=== PATIENT | male | born 1985 | race Caucasian/White ===

== ENCOUNTER 2017-10-23 07:12 | Emergency (ER) | payer OTHER ==
[2017-10-23 07:31] VITALS: BP 127/90
[2017-10-23] MEDS ORDERED: Sodium Chloride 0.9% 10 ML Syringe FLUSH PRN (07:49)
[2017-10-23] MEDS ORDERED: Sodium Chloride 0.9% 1,000 ML IV SCH (08:00)
[2017-10-23] MEDS ORDERED: Ondansetron 4 MG/2 ML SDV IVPUSH ONE (08:08)
--- NOTE | 2017-10-23 09:12 | EDM.PDOC ---
ED HPI GENERAL MEDICAL PROBLEM - General Chief Complaint: Syncope Stated Complaint: SYNCOPE Time Seen by Provider: 10/23/17 07:30 Source of Information: Reports: Patient, Family History Limitations: Reports: No Limitations - History of Present Illness INITIAL COMMENTS - FREE TEXT/NARRATIVE: The patient went to bed feeling fine. At 3am he woke up and vomited once. He went back to bed and did not sleep well. He got up this morning to get ready and he passed out. His said he was out for about 2 minutes. He did not hit his head. He has a mild headache. He has no chest pain, shortness of breath, fever, chills, cough, or abdominal pain. He has no nausea now. He has no numbness or weakness. He has no health problems. Onset: Gradual Duration: Hour(s): (3am) Location: Reports: Head Quality: Reports: Ache Severity: Mild Improves with: Reports: None Worsens with: Reports: None Associated Symptoms: Reports: Nausea/Vomiting. Denies: Confusion, Chest Pain, Cough, Fever/Chills, Headaches, Shortness of Breath Headache Pain Score (Numeric/FACES): 3 - Related Data Allergies Allergy/AdvReac Type Severity Reaction Status Date / Time cefaclor [From [facility]] Allergy Hives Verified 10/23/17 07:31 Home Meds: Home Meds Ondansetron [Zofran ODT] 4 mg PO Q6H PRN #20 tab.dis 10/23/17 [Rx] Past Medical History - Past Health History Medical/Surgical History: Denies Medical/Surgical History - Past Surgical History HEENT Surgical History: Reports: Oral Surgery Social & Family History - Tobacco Use Smoking Status *Q: Never Smoker Second Hand Smoke Exposure: No - Caffeine Use Caffeine Use: Reports: None - Alcohol Use Days Per Week of Alcohol Use: 0 - Recreational Drug Use Recreational Drug Use: No - Living Situation & Occupation Living situation: Reports: , with Family Occupation: Employed ED ROS GENERAL - Review of Systems Review Of Systems: See Below Constitutional: Reports: No Symptoms HEENT: Reports: No Symptoms Respiratory: Reports: No Symptoms Cardiovascular: Reports: Syncope Endocrine: Reports: No Symptoms GI/Abdominal: Reports: Nausea, Vomiting. Denies: Abdominal Pain, Diarrhea : Reports: No Symptoms Musculoskeletal: Reports: No Symptoms Skin: Reports: No Symptoms Neurological: Reports: Headache. Denies: Confusion, Dizziness, Numbness, Weakness ED EXAM, GENERAL - Physical Exam Exam: See Below Exam Limited By: No Limitations General Appearance: Alert, No Apparent Distress Ears: Normal External Exam Nose: Normal Inspection Head: Atraumatic, Normocephalic Neck: Normal Inspection Respiratory/Chest: No Respiratory Distress, Lungs Clear, Normal Breath Sounds Cardiovascular: Regular Rate, Rhythm, No Edema, No Murmur GI/Abdominal: Soft, Non-Tender, No Organomegaly, No Mass Back Exam: Normal Inspection Extremities: Normal Inspection Neurological: Alert, Oriented, No Motor/Sensory Deficits Skin Exam: Warm, Dry EKG INTERPRETATION EKG Date: 10/23/17 Time: 08:09 Rhythm: NSR Rate (Beats/Min): 63 [place]: Normal P-Wave: Present QRS: Normal ST-T: Elevated (normal early repol) QT: Normal Course - Vital Signs Last Recorded V/S: Last Vital Signs Temp 97.8 F 10/23/17 07:25 Pulse 68 10/23/17 07:25 Resp 16 10/23/17 07:25 BP 127/90 10/23/17 07:25 Pulse Ox 100 10/23/17 07:25 Orthostatic Blood Pressure [ 127/104 Standing] Orthostatic Blood Pressure [ 133/82 Sitting] Orthostatic Blood Pressure [ 127/90 Supine] - Orders/Labs/Meds Orders: Active Orders 24 hr Category Date Time Status Cardiac Monitoring [RC] . DIRECTED Care 10/23/17 07:49 Active EKG Documentation Completion [RC] STAT Care 10/23/17 07:49 Active Peripheral IV Care [RC] . DIRECTED Care 10/23/17 07:49 Active Sodium Chloride 0.9% [Normal Saline] 1,000 ml Med 10/23/17 08:00 Active IV .BOLUS Sodium Chloride 0.9% [Saline Flush] Med 10/23/17 07:49 Active 10 ml FLUSH ASDIRECTED PRN Peripheral IV Insertion Adult [OM.PC] Stat Oth 10/23/17 07:49 Ordered Medication Orders Sodium Chloride (Normal Saline) 1,000 mls @ 1,000 mls/hr IV .BOLUS KENDRA Last Admin: 10/23/17 08:10 Dose: 1,000 mls/hr Sodium Chloride (Saline Flush) 10 ml FLUSH ASDIRECTED PRN PRN Reason: Keep Vein Open Last Admin: 10/23/17 08:10 Dose: 10 ml Labs: Laboratory Tests 10/23/17 10/23/17 10/23/17 Range/Units 08:00 08:00 08:00 WBC 6.60 (4.23-9.07) K/mm3 RBC 5.28 (4.63-6.08) M/mm3 Hgb 15.2 (13.7-17.5) gm/L Hct 44.6 (40.1-51.0) % MCV 84.5 (79.0-92.2) fl MCH 28.8 (25.7-32.2) pg MCHC 34.1 (32.2-35.5) g/dl RDW Std Deviation 40.8 (35.1-43.9) fL Plt Count 331 (163-337) K/mm3 MPV 8.7 L (9.4-12.3) fl Neut % (Auto) 46.2 (34.0-67.9) % Lymph % (Auto) 39.4 (21.8-53.1) % [place] % (Auto) 12.6 H (5.3-12.2) % Eos % (Auto) 1.1 (0.8-7.0) Baso % (Auto) 0.5 (0.1-1.2) % Neut # (Auto) 3.06 (1.78-5.38) K/mm3 Lymph # (Auto) 2.60 (1.32-3.57) K/mm3 [place] # (Auto) 0.83 H (0.30-0.82) K/mm3 Eos # (Auto) 0.07 (0.04-0.54) K/mm3 Baso # (Auto) 0.03 (0.01-0.08) K/mm3 D-Dimer, Quantitative < 0.19 L (0.19-0.59) mg/L Sodium 140 (136-145) mEq/L Potassium 4.5 (3.5-5.1) mEq/L Chloride 105 (98-107) mEq/L Carbon Dioxide 24 (21-32) mEq/L Anion Gap 15.5 H (5-15) BUN 21 H (7-18) mg/dL Creatinine 1.2 (0.7-1.3) mg/dL Est Cr Clr Drug Dosing 87.56 mL/min Estimated GFR (MDRD) > 60 (>60) mL/min BUN/Creatinine Ratio 17.5 (14-18) Glucose 109 H (74-106) mg/dL Calcium 9.3 (8.5-10.1) mg/dL Total Bilirubin 0.6 (0.2-1.0) mg/dL AST 25 (15-37) U/L ALT 27 (16-63) U/L Alkaline Phosphatase 73 (46-116) U/L Troponin I < 0.017 (0.00-0.056) ng/mL Total Protein 7.6 (6.4-8.2) g/dl Albumin 3.8 (3.4-5.0) g/dl Globulin 3.8 gm/dL Albumin/Globulin Ratio 1.0 (1-2) Meds: Medications Generic Name Dose Route Start Last Admin Trade Name Freq PRN Reason Stop Dose Admin Sodium Chloride 1,000 mls @ 1,000 mls/hr 10/23/17 08:00 10/23/17 08:10 Normal Saline IV 1,000 mls/hr .BOLUS KENDRA Administration Sodium Chloride 10 ml 10/23/17 07:49 10/23/17 08:10 Saline Flush FLUSH 10 ml ASDIRECTED PRN Administration Keep Vein Open Discontinued Medications Generic Name Dose Route Start Last Admin Trade Name Freq PRN Reason Stop Dose Admin Ondansetron HCl 4 mg 10/23/17 08:08 10/23/17 08:12 Zofran IVPUSH 10/23/17 08:09 4 mg ONETIME ONE Administration - Re-Assessments/Exams Free Text/Narrative Re-Assessment/Exam: 10/23/17 09:14 I ordered an IV NS 1L bolus, EKG, labs. His EKG shows a NSR with no acute changes. He had more nausea and vomited once. I ordered some zofran 4mg IV. He denied nausea here in the ER earlier. His CBC and CMP look good. His troponin and D-dimer was negative. He feels better. 10/23/17 09:31 I will discharge him home with some zofran. Departure - Departure Time of Disposition: 09:35 Disposition: Home, Self-Care 01 Condition: Good Clinical Impression: Gastroenteritis Prescriptions: Ondansetron [Zofran ODT] 4 mg PO Q6H PRN #20 tab.dis PRN Reason: Nausea/Vomiting Referrals: German Abad Jr, MD [Primary Care Provider] - 1 Week Forms: ED Department Discharge Additional Instructions: Take zofran every 6 hours as needed for nausea and vomiting. Drink plenty of fluids today. Get some rest. Please return if you are worse. - My Orders Last 24 Hours: My Active Orders 10/23/17 07:49 Cardiac Monitoring [RC] . DIRECTED EKG Documentation Completion [RC] STAT Peripheral IV Care [RC] . DIRECTED Sodium Chloride 0.9% [Saline Flush] 10 ml FLUSH ASDIRECTED PRN Peripheral IV Insertion Adult [OM.PC] Stat 10/23/17 08:00 Sodium Chloride 0.9% [Normal Saline] 1,000 ml IV .BOLUS - Assessment/Plan Last 24 Hours: My Active Orders 10/23/17 07:49 Cardiac Monitoring [RC] . DIRECTED EKG Documentation Completion [RC] STAT Peripheral IV Care [RC] . DIRECTED Sodium Chloride 0.9% [Saline Flush] 10 ml FLUSH ASDIRECTED PRN Peripheral IV Insertion Adult [OM.PC] Stat 10/23/17 08:00 Sodium Chloride 0.9% [Normal Saline] 1,000 ml IV .BOLUS
== END 2017-10-23 09:42 | disposition home or self-care (01) ==
LOC: JD.ED 07:12
DX: K52.9 Noninfective gastroenteritis and colitis, unspecified (principal); Z88.1 Allergy status to other antibiotic agents
CPT/HCPCS: 36415; 80053; 84484; 85025; 85379; 93005; 96361; 96374; 99284; J2405; J7040; J7050; 93010

== ENCOUNTER 2018-04-04 07:46 | Emergency (ER) | payer OTHER ==
--- NOTE | 2018-04-04 08:59 | EDM.PDOCBH ---
ED HPI GENERAL MEDICAL PROBLEM - General Chief Complaint: Behavioral/Psych Stated Complaint: ANXIETY Time Seen by Provider: 04/04/18 08:14 Source of Information: Reports: Patient, Family () History Limitations: Reports: No Limitations - History of Present Illness INITIAL COMMENTS - FREE TEXT/NARRATIVE: The patient states that he has had symptoms of a headache, stomachache, feeling "on edge", insomnia, anorexia, and anxiousness for about 2 weeks, but that it became much more significant last night. He acknowledges that he has been feeling both depressed and suicidal for about a month. He states that he has a plan to kill himself, by shooting himself. He states that he does own a handgun. He denies that he has attempted to harm himself by any mechanism thus far. He has no history of depression or suicide attempt. He has never been on psychiatric medications. He has never seen a counselor, Psychologist, or Psychiatrist. He has never been psychiatrically hospitalized. The patient's PCP is Dr. German Abad, who has not been informed of this issue. Head Pain Score (Numeric/FACES): 5 Lower Abdomen Pain Score (Numeric/FACES): 4 - Related Data Allergies Allergy/AdvReac Type Severity Reaction Status Date / Time cefaclor [From [facility]] Allergy Hives Verified 04/04/18 07:59 Home Meds: Home Meds . [No Known Home Meds] 04/04/18 [History] Past Medical History HEENT History: Reports: Impaired Vision Other HEENT History: wears eyeglasses. 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 ED EXAM, BEHAVIORAL HEALTH - Physical Exam Exam: See Below Exam Limited By: No Limitations General Appearance: Alert, WD/WN, No Apparent Distress Eye Exam: Bilateral Eye: Normal Inspection Ears: Normal External Exam, Hearing Grossly Normal Nose: Normal Inspection, No Blood Throat/Mouth: Normal Inspection, Normal Lips, Normal Voice, No Airway Compromise Head: Atraumatic, Normocephalic Neck: Normal Inspection, Full Range of Motion Respiratory/Chest: No Respiratory Distress, Lungs Clear, Normal Breath Sounds, No Accessory Muscle Use Cardiovascular: Normal Peripheral Pulses, Regular Rate, Rhythm, No Edema, No Gallop, No JVD, No Murmur, No Rub GI/Abdominal: Normal Bowel Sounds, Soft, Non-Tender, No Organomegaly, No Distention, No Abnormal Bruit, No Mass (Male) Exam: Deferred Rectal (Males) Exam: Deferred Back Exam: Normal Inspection, Full Range of Motion, NT Extremities: Normal Inspection, Normal Range of Motion, No Pedal Edema, Normal Capillary Refill Neurological: Alert, Normal Cognition, No Motor/Sensory Deficits, Oriented x 3 Psychiatric: Depressed Mood Skin Exam: Warm, Dry, Intact, Normal color, No rash EKG INTERPRETATION EKG Date: 04/04/18 Time: 09:56 Rhythm: NSR Rate (Beats/Min): 76 [place]: Normal P-Wave: Present QRS: Normal ST-T: Normal (Diffuse J-point elevation. No ischemic changes.) QT: Normal Comparison: No Change (10/23/2017) COURSE, BEHAVIORAL HEALTH COMP - Course Vital Signs: Last Vital Signs Temp 36.6 C 04/04/18 07:50 Pulse 70 04/04/18 07:50 Resp 16 04/04/18 07:50 BP 143/99 H 04/04/18 07:50 Pulse Ox 93 L 04/04/18 07:50 Orders, Labs, Meds: Active Orders 24 hr Category Date Time Status EKG Documentation Completion [RC] STAT Care 04/04/18 08:52 Active DRUG SCREEN, URINE [URCHEM] Stat Lab 04/04/18 10:01 Ordered Laboratory Tests 04/04/18 04/04/18 04/04/18 Range/Units 09:04 09:04 09:04 WBC 8.69 (4.23-9.07) K/mm3 RBC 5.63 (4.63-6.08) M/mm3 Hgb 16.3 (13.7-17.5) gm/L Hct 46.7 (40.1-51.0) % MCV 82.9 (79.0-92.2) fl MCH 29.0 (25.7-32.2) pg MCHC 34.9 (32.2-35.5) g/dl RDW Std Deviation 39.3 (35.1-43.9) fL Plt Count 347 H (163-337) K/mm3 MPV 8.6 L (9.4-12.3) fl Neutrophils % (Manual) 58 (40-60) % Band Neutrophils % 0 (0-10) % Lymphocytes % (Manual) 37 (20-40) % Atypical Lymphs % 0 % Monocytes % (Manual) 5 (2-10) % Eosinophils % (Manual) 0 L (0.8-7.0) % Basophils % (Manual) 0 L (0.2-1.2) Platelet Estimate Adequate RBC Morph Comment Normal Sodium 136 (136-145) mEq/L Potassium 4.4 (3.5-5.1) mEq/L Chloride 100 (98-107) mEq/L Carbon Dioxide 25 (21-32) mEq/L Anion Gap 15.4 H (5-15) BUN 18 (7-18) mg/dL Creatinine 1.2 (0.7-1.3) mg/dL Est Cr Clr Drug Dosing 87.56 mL/min Estimated GFR (MDRD) > 60 (>60) mL/min BUN/Creatinine Ratio 15.0 (14-18) Glucose 102 (74-106) mg/dL Calcium 9.3 (8.5-10.1) mg/dL Total Bilirubin 0.9 (0.2-1.0) mg/dL AST 18 (15-37) U/L ALT 25 (16-63) U/L Alkaline Phosphatase 84 (46-116) U/L Total Protein 8.2 (6.4-8.2) g/dl Albumin 4.2 (3.4-5.0) g/dl Globulin 4.0 gm/dL Albumin/Globulin Ratio 1.1 (1-2) TSH 3rd Generation 1.392 (0.358-3.74) uIU/mL Salicylates < 0.2 L (2.8-20) mg/dL Urine Opiates Screen (NEGATIVE) Ur Buprenorphine Scrn (NEGATIVE) Ur Oxycodone Screen (NEGATIVE) Urine Methadone Screen (NEGATIVE) Ur Propoxyphene Screen (NEGATIVE) Acetaminophen 0 L (10-30) ug/mL Ur Barbiturates Screen (NEGATIVE) Ur Tricyclics Screen (NEGATIVE) Ur Phencyclidine Scrn (NEGATIVE) Ur Amphetamine Screen (NEGATIVE) U Methamphetamines Scrn (NEGATIVE) U Benzodiazepines Scrn (NEGATIVE) U Cocaine Metab Screen (NEGATIVE) U Marijuana (THC) Screen (NEGATIVE) Ethyl Alcohol 0.00 (0.00) gm% 04/04/18 Range/Units 10:01 WBC (4.23-9.07) K/mm3 RBC (4.63-6.08) M/mm3 Hgb (13.7-17.5) gm/L Hct (40.1-51.0) % MCV (79.0-92.2) fl MCH (25.7-32.2) pg MCHC (32.2-35.5) g/dl RDW Std Deviation (35.1-43.9) fL Plt Count (163-337) K/mm3 MPV (9.4-12.3) fl Neutrophils % (Manual) (40-60) % Band Neutrophils % (0-10) % Lymphocytes % (Manual) (20-40) % Atypical Lymphs % % Monocytes % (Manual) (2-10) % Eosinophils % (Manual) (0.8-7.0) % Basophils % (Manual) (0.2-1.2) Platelet Estimate RBC Morph Comment Sodium (136-145) mEq/L Potassium (3.5-5.1) mEq/L Chloride (98-107) mEq/L Carbon Dioxide (21-32) mEq/L Anion Gap (5-15) BUN (7-18) mg/dL Creatinine (0.7-1.3) mg/dL Est Cr Clr Drug Dosing mL/min Estimated GFR (MDRD) (>60) mL/min BUN/Creatinine Ratio (14-18) Glucose (74-106) mg/dL Calcium (8.5-10.1) mg/dL Total Bilirubin (0.2-1.0) mg/dL AST (15-37) U/L ALT (16-63) U/L Alkaline Phosphatase (46-116) U/L Total Protein (6.4-8.2) g/dl Albumin (3.4-5.0) g/dl Globulin gm/dL Albumin/Globulin Ratio (1-2) TSH 3rd Generation (0.358-3.74) uIU/mL Salicylates (2.8-20) mg/dL Urine Opiates Screen Negative (NEGATIVE) Ur Buprenorphine Scrn Negative (NEGATIVE) Ur Oxycodone Screen Negative (NEGATIVE) Urine Methadone Screen Negative (NEGATIVE) Ur Propoxyphene Screen Negative (NEGATIVE) Acetaminophen (10-30) ug/mL Ur Barbiturates Screen Negative (NEGATIVE) Ur Tricyclics Screen Negative (NEGATIVE) Ur Phencyclidine Scrn Negative (NEGATIVE) Ur Amphetamine Screen Negative (NEGATIVE) U Methamphetamines Scrn Negative (NEGATIVE) U Benzodiazepines Scrn Negative (NEGATIVE) U Cocaine Metab Screen Negative (NEGATIVE) U Marijuana (THC) Screen Negative (NEGATIVE) Ethyl Alcohol (0.00) gm% Medical Clearance: 04/04/18 11:13 Because the patient has a handgun at home, and is actively suicidal with a plan to shoot himself, I believe the patient requires psychiatric hospitalization. The patient was seen by our social worker aide, Vijaya, this morning, and made arrangements for psychiatric admission to [facility], pending medical clearance. The patient's medical clearance has been completed, and is normal. I contacted [facility] at 11:12. They will have the Psychiatrist call me back. 04/04/18 11:[address] Kaity Carter, Psychiatrist at [facility], at 11:30. She tentatively accepts the patient for admission to their psychiatric unit, however, would prefer that the patient be transported by the [facility] department, because if the patient is transported by a family member, he could change his mind at any time. Additionally, what occurs between our ED and their ED could not be validated, therefore the patient would have to go through their ED before being admitted to the psychiatric unit. We are contacting the [facility] department to see about their availability to transport the patient. 04/04/18 12:22 The [facility] Department was contacted. They initially refused to transport the patient, stating that they did not want to be a taxi service just so that the patient can avoid going to [facility] ED. It was explained that the main reason that Dr. Carter wants the patient to transported by [facility] is so that the patient cannot change their mind. The has agreed to transport the patient. We will have Vijaya from social services director fill out the involuntary paperwork. The above was then relayed to Dr. Carter. She would like to see the involuntary paperwork, as well as a copy of my H&P, as well as lab results before she gives official acceptance. 04/04/18 15:32 Contacted by Jason Reese at 15:14 that the patient has been accepted for psychiatric admission. Departure - Departure Time of Disposition: 15:15 Disposition: DC/Tfer to Psych Hosp/Unit 65 Condition: Good Clinical Impression: Suicidal ideation, Depression - Discharge Information - My Orders Last 24 Hours: My Active Orders 04/04/18 08:52 EKG Documentation Completion [RC] STAT 04/04/18 10:01 DRUG SCREEN, URINE [URCHEM] Stat - Assessment/Plan Last 24 Hours: My Active Orders 04/04/18 08:52 EKG Documentation Completion [RC] STAT 04/04/18 10:01 DRUG SCREEN, URINE [URCHEM] Stat
[2018-04-04 09:52] LABS: ACETAMINOPHEN 0 ug/mL (10-30)
[2018-04-04 16:46] VITALS: BP 146/93
== END 2018-04-04 16:29 ==
LOC: SUPCPDRO 07:46 → JD.ED 07:46
DX: F32.9 Major depressive disorder, single episode, unspecified (principal); R45.851 Suicidal ideations; Z88.1 Allergy status to other antibiotic agents
CPT/HCPCS: 36415; 80053; 80306; 84443; 85007; 85027; 93005; 99285; G0480

== ENCOUNTER 2019-07-21 05:10 | Emergency (ER) | payer OTHER ==
--- NOTE | 2019-07-21 05:39 | EDM.PDOC ---
<Jerry Barber - Last Filed: 07/21/19 06:52> ED HPI GENERAL MEDICAL PROBLEM - General Chief Complaint: Back Pain or Injury Stated Complaint: back pain Time Seen by Provider: 07/21/19 05:21 Source of Information: Reports: Patient, Family () History Limitations: Reports: No Limitations - History of Present Illness INITIAL COMMENTS - FREE TEXT/NARRATIVE: Mr. 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 He states that he received a PICC line while hospitalized, and was on IV Zosyn for 7 days after he was discharged home, followed by oral Flagyl, which he is still on. His PICC line has subsequently been removed. He states that he developed right flank pain that radiates up to his right scapular area while hospitalized. The pain has waxed and waned ever since, but increased yesterday, and today is even worse. It is crampy and stabbing in character. It is present even if he remains perfectly still, but much worse if he moves, takes a deep breath, or coughs. No recent fever. No recent nausea, vomiting, constipation, or diarrhea. No urinary symptoms, and no gross hematuria. The patient has not sought medical evaluation for this symptom, and he has not had this symptom prior to being hospitalized in early June. The patient has taken Tylenol, only, for this. The patient's PCP is Dr. German Abad. He has an appointment to see Dr. Abad on 08/07/2019. His Infectious Disease specialist is Dr. Matthew De. Treatments LAWYER: Reports: Acetaminophen Right Lower Back Pain Score (Numeric/FACES): 9 - Related Data Allergies Allergy/AdvReac Type Severity Reaction Status Date / Time cefaclor [From Ceclor] Allergy Hives Verified 07/21/19 05:20 Home Meds: Home Meds Pantoprazole Sodium [Protonix] 40 mg PO Q24H #30 tablet. 06/18/19 [Rx] Sucralfate [Carafate] 1 gm PO Q6H #20 tablet 06/18/19 [Rx] Cyclobenzaprine [Flexeril] 10 mg PO TID PRN #20 tab 07/21/19 [Rx] Hydrocodone/Acetaminophen [Hydrocodon-Acetaminophen 5-325] 1 - 2 each PO Q6HR PRN #10 tablet 07/21/19 [Rx] Past Medical History HEENT History: Reports: Impaired Vision Other HEENT History: wears eyeglasses. Psychiatric History: Reports: Anxiety, Depression, Suicidal Ideation - Infectious Disease History Infectious Disease History: Reports: Chicken Pox, Other (See Below) (Jugular vein suppurative thrombophlebitis) - Past Surgical History HEENT Surgical History: Reports: Oral Surgery Social & Family History - Tobacco Use Smoking Status *Q: Never Smoker - Caffeine Use Caffeine Use: Reports: None - Alcohol Use Alcohol Use History: Yes Alcohol Use Frequency: Rarely - Recreational Drug Use Recreational Drug Use: No - Living Situation & Occupation Living situation: Reports: , with Spouse, with Family (1 daughter) 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 ED EXAM, GENERAL - Physical Exam Exam: See Below Exam Limited By: No Limitations General Appearance: Alert, WD/WN, No Apparent Distress Eye Exam: Bilateral Eye: EOMI, Normal Inspection Ears: Normal External Exam, Hearing Grossly Normal Nose: Normal Inspection Throat/Mouth: Normal Inspection, Normal Lips, Normal Voice, No Airway Compromise Head: Atraumatic, Normocephalic Neck: Normal Inspection, Full Range of Motion Respiratory/Chest: No Respiratory Distress, No Accessory Muscle Use, Decreased Breath Sounds (right base). No: Crackles, Rhonchi, Wheezing, Prolonged Expiration Cardiovascular: Normal Peripheral Pulses, Regular Rate, Rhythm, No Edema, No Gallop, No JVD, No Murmur, No Rub Peripheral Pulses: 4+: Radial (L), Radial (R) GI/Abdominal: Normal Bowel Sounds, Soft, Non-Tender, No Organomegaly, No Distention, No Abnormal Bruit, No Mass (Male) Exam: Deferred Rectal (Males) Exam: Deferred Back Exam: Full Range of Motion, CVA Tenderness (R) (also mildly tender to direct palpation). No: CVA Tenderness (L) Extremities: Normal Inspection, Normal Range of Motion, No Pedal Edema, Normal Capillary Refill Neurological: Alert, Oriented, Normal Cognition, No Motor/Sensory Deficits Psychiatric: Normal Affect Skin Exam: Warm, Dry, Intact, Normal Color, No Rash Course - Vital Signs Last Recorded V/S: Last Vital Signs Temp 97.6 F 07/21/19 05:17 Pulse 86 07/21/19 05:17 Resp 16 07/21/19 05:17 BP 126/69 07/21/19 05:17 Pulse Ox 98 07/21/19 05:17 - Orders/Labs/Meds Labs: Laboratory Tests 07/21/19 07/21/19 07/21/19 Range/Units 05:50 05:50 05:50 WBC 13.19 H (4.23-9.07) K/mm3 RBC 4.92 (4.63-6.08) M/mm3 Hgb 14.3 (13.7-17.5) gm/L Hct 42.2 (40.1-51.0) % MCV 85.8 (79.0-92.2) fl MCH 29.1 (25.7-32.2) pg MCHC 33.9 (32.2-35.5) g/dl RDW Std Deviation 45.5 H (35.1-43.9) fL Plt Count 313 (163-337) K/mm3 MPV 8.5 L (9.4-12.3) fl Neutrophils % (Manual) 64 H (40-60) % Band Neutrophils % 0 (0-10) % Lymphocytes % (Manual) 27 (20-40) % Atypical Lymphs % 0 % Monocytes % (Manual) 7 (2-10) % Eosinophils % (Manual) 2 (0.8-7.0) % Basophils % (Manual) 0 L (0.2-1.2) Platelet Estimate Adequate RBC Morph Comment Normal D-Dimer, Quantitative 0.57 H (0.19-0.50) mg/L Sodium 137 (136-145) mEq/L Potassium 3.9 (3.5-5.1) mEq/L Chloride 102 (98-107) mEq/L Carbon Dioxide 24 (21-32) mEq/L Anion Gap 14.9 (5-15) BUN 15 (7-18) mg/dL Creatinine 1.1 (0.7-1.3) mg/dL Est Cr Clr Drug Dosing 93.73 mL/min Estimated GFR (MDRD) > 60 (>60) mL/min BUN/Creatinine Ratio 13.6 L (14-18) Glucose 114 H (74-106) mg/dL Calcium 8.9 (8.5-10.1) mg/dL Total Bilirubin 0.5 (0.2-1.0) mg/dL AST 27 (15-37) U/L ALT 49 (16-63) U/L Alkaline Phosphatase 96 (46-116) U/L Total Protein 8.4 H (6.4-8.2) g/dl Albumin 3.7 (3.4-5.0) g/dl Globulin 4.7 gm/dL Albumin/Globulin Ratio 0.8 L (1-2) Urine Color (Yellow) Urine Appearance (Clear) Urine pH (5.0-8.0) Ur Specific Turner (1.005-1.030) Urine Protein (Negative) Urine Glucose (UA) (Negative) Urine Ketones (Negative) Urine Occult Blood (Negative) Urine Nitrite (Negative) Urine Bilirubin (Negative) Urine Urobilinogen (0.2-1.0) Ur Leukocyte Esterase (Negative) Urine RBC (0-5) /hpf Urine WBC (0-5) /hpf Ur Squamous Epith Cells (0-5) /hpf Urine Bacteria (FEW) /hpf Urine Mucus (FEW) /hpf 07/21/19 Range/Units 07:20 WBC (4.23-9.07) K/mm3 RBC (4.63-6.08) M/mm3 Hgb (13.7-17.5) gm/L Hct (40.1-51.0) % MCV (79.0-92.2) fl MCH (25.7-32.2) pg MCHC (32.2-35.5) g/dl RDW Std Deviation (35.1-43.9) fL Plt Count (163-337) K/mm3 MPV (9.4-12.3) fl Neutrophils % (Manual) (40-60) % Band Neutrophils % (0-10) % Lymphocytes % (Manual) (20-40) % Atypical Lymphs % % Monocytes % (Manual) (2-10) % Eosinophils % (Manual) (0.8-7.0) % Basophils % (Manual) (0.2-1.2) Platelet Estimate RBC Morph Comment D-Dimer, Quantitative (0.19-0.50) mg/L Sodium (136-145) mEq/L Potassium (3.5-5.1) mEq/L Chloride (98-107) mEq/L Carbon Dioxide (21-32) mEq/L Anion Gap (5-15) BUN (7-18) mg/dL Creatinine (0.7-1.3) mg/dL Est Cr Clr Drug Dosing mL/min Estimated GFR (MDRD) (>60) mL/min BUN/Creatinine Ratio (14-18) Glucose (74-106) mg/dL Calcium (8.5-10.1) mg/dL Total Bilirubin (0.2-1.0) mg/dL AST (15-37) U/L ALT (16-63) U/L Alkaline Phosphatase (46-116) U/L Total Protein (6.4-8.2) g/dl Albumin (3.4-5.0) g/dl Globulin gm/dL Albumin/Globulin Ratio (1-2) Urine Color Yellow (Yellow) Urine Appearance Clear (Clear) Urine pH 6.0 (5.0-8.0) Ur Specific Turner 1.025 (1.005-1.030) Urine Protein Negative (Negative) Urine Glucose (UA) Negative (Negative) Urine Ketones Negative (Negative) Urine Occult Blood Negative (Negative) Urine Nitrite Negative (Negative) Urine Bilirubin Negative (Negative) Urine Urobilinogen 0.2 (0.2-1.0) Ur Leukocyte Esterase Trace H (Negative) Urine RBC Not seen (0-5) /hpf Urine WBC 0-5 (0-5) /hpf Ur Squamous Epith Cells Not seen (0-5) /hpf Urine Bacteria Not seen (FEW) /hpf Urine Mucus Few (FEW) /hpf Meds: Medications Discontinued Medications Generic Name Dose Route Start Last Admin Trade Name Freq PRN Reason Stop Dose Admin Hydrocodone Bitart/Acetaminophen 2 tab 07/21/19 06:35 07/21/19 06:40 [place] 325-5 Mg PO 07/21/19 06:36 2 tab ONETIME ONE Administration Orphenadrine Citrate 100 mg 07/21/19 06:35 07/21/19 06:40 Norflex PO 07/21/19 06:36 100 mg ONETIME STA Administration - Re-Assessments/Exams Free Text/Narrative Re-Assessment/Exam: 07/21/19 05:36 On examination, the patient has significantly diminished breath sounds to his right base, suggestive of a pleural effusion. I ordered a chest x-ray and some blood work. Based on those findings, we will see if further workup is needed. 07/21/19 06:00 2-view chest radiograph appears to be grossly normal. The cardiac silhouette is within normal limits. No pulmonary vascular congestion. No pleural effusions. No focal infiltrate. No pneumothorax. Formal read per the Radiologist pending. I cannot explain the diminished breath sounds at the right base, however, I believe it would be prudent to rule out a PE. I have ordered a D-dimer, I have also ordered a urinalysis, to make sure that this is not an unusual presentation of a ureterolith. 07/21/19 06:35 The patient's CBC is remarkable for a WBC count mildly elevated at 13.19, but with 0% bandemia. The remainder of his CBC is unremarkable. His CMP is remarkable for blood glucose slightly elevated at 114, with the remainder of the CMP being unremarkable. His D-dimer is only slightly elevated at 0.57. The patient has not yet provided a urine sample. 07/21/19 07:[address] Lehman, and care of the patient turned over to him at this time, for change of shift. Departure - Departure Disposition: Home, Self-Care 01 Clinical Impression: Back pain Qualifiers: Back pain location: low back pain Chronicity: acute Back pain laterality: right Sciatica presence: without sciatica Qualified Code(s): M54.5 - Low back pain - Discharge Information *PRESCRIPTION DRUG MONITORING PROGRAM REVIEWED*: Not Applicable *COPY OF PRESCRIPTION DRUG MONITORING REPORT IN PATIENT TERESITA: Not Applicable Prescriptions: Hydrocodone/Acetaminophen [Hydrocodon-Acetaminophen 5-325] 1 - 2 each PO Q6HR PRN #10 tablet PRN Reason: Pain Cyclobenzaprine [Flexeril] 10 mg PO TID PRN #20 tab PRN Reason: Pain Referrals: German Abad Jr, MD [Primary Care Provider] - Matthew De MD [Ordering Only Provider] - Forms: ED Department Discharge Additional Instructions: Take motrin or tylenol for the pain. If that does not help, try the flexeril and hydrocodone. If none of that is helping, follow up with your doctor. Please return if you are worse. <Stevie Lehman - Last Filed: 07/21/19 08:11> Course - Re-Assessments/Exams Free Text/Narrative Re-Assessment/Exam: 07/21/19 08:07 His UA shows no blood. This is felt to be back pain. I will get him on a muscle relaxer and a few pain pills. Departure - Departure Time of Disposition: 08:10 Condition: Good - Discharge Information *PRESCRIPTION DRUG MONITORING PROGRAM REVIEWED*: Not Applicable *COPY OF PRESCRIPTION DRUG MONITORING REPORT IN PATIENT TERESITA: Not Applicable
[2019-07-21] MEDS ORDERED: Acetaminophen/HYDROcodone 325-5 MG Tab PO ONE (06:35)
[2019-07-21] MEDS ORDERED: Orphenadrine 100 MG Tab.ER PO STA (06:35)
--- NOTE | 2019-07-21 07:53 | CR ---
Chest: Two views of the chest were obtained. Comparison: No prior chest x-ray. Very minimal atelectasis is seen within the lateral left costophrenic angle. Lungs otherwise are clear. Heart size and mediastinum are normal. Bony structures are unremarkable. Impression: 1. Nothing acute is seen on two-view chest x-ray. Diagnostic code #2
[2019-07-21 08:30] VITALS: BP 107/65
== END 2019-07-21 08:32 | disposition home or self-care (01) ==
LOC: JD.ED 05:10
DX: M54.5 Low back pain (principal); Z88.1 Allergy status to other antibiotic agents; Z79.899 Other long term (current) drug therapy
CPT/HCPCS: 36415; 71046; 80053; 81001; 85007; 85027; 85379; 99283; A9270

== ENCOUNTER 2020-12-24 08:20 | Emergency (ER) | payer OTHER ==
[2020-12-24] MEDS ORDERED: Sodium Chloride 0.9% 10 ML Syringe FLUSH PRN (08:41)
--- NOTE | 2020-12-24 08:44 | EDM.PDOC ---
ED HPI GENERAL MEDICAL PROBLEM - General Chief Complaint: Syncope Stated Complaint: SYNCOPE Time Seen by Provider: 12/24/20 08:28 Source of Information: Reports: Patient History Limitations: Reports: No Limitations - History of Present Illness INITIAL COMMENTS - FREE TEXT/NARRATIVE: The patient presents with syncope. He said he went to bed last night and he felt more tired then normal. It had been a long week. He woke up this morning and went to the bathroom and he passed out for a few seconds. He did hit his head. He has a small area of edema to the right forehead. He has some mild neck pain and left wrist pain. He said this happened a few years ago and no reason was found at the time. He has no fever, chills, cough, chest pain, shortness of breath, abdominal pain, nausea or vomiting. Onset: Sudden Duration: Minutes: Location: Reports: Head Quality: Reports: Ache Severity: Mild Improves with: Reports: None Worsens with: Reports: None Associated Symptoms: Reports: Headaches. Denies: Chest Pain, Cough, Fever/Chills, Nausea/Vomiting, Shortness of Breath Left Wrist Pain Score (Numeric/FACES): 3 - Related Data Allergies Allergy/AdvReac Type Severity Reaction Status Date / Time cefaclor [From Ceclor] Allergy Severe Hives Verified 12/24/20 08:32 Past Medical History HEENT History: Reports: Impaired Vision Other HEENT History: wears eyeglasses. Respiratory History: Reports: Pneumonia, Recurrent, Other (See Below) Other Respiratory History: septic from pneumonia Neurological History: Reports: Concussion, Migraines Psychiatric History: Reports: Anxiety, Depression, Suicidal Ideation - Infectious Disease History Infectious Disease History: Reports: Chicken Pox, Other (See Below) (Jugular vein suppurative thrombophlebitis) - Past Surgical History HEENT Surgical History: Reports: Oral Surgery Social & Family History - Caffeine Use Caffeine Use: Reports: None - Living Situation & Occupation Living situation: Reports: , with Spouse, with Family (1 daughter) 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 Denies: Chest Pain Endocrine: Reports: No Symptoms GI/Abdominal: Reports: No Symptoms : Reports: No Symptoms Musculoskeletal: Reports: No Symptoms - Physical Exam Exam: See Below Exam Limited By: No Limitations General Appearance: Alert, No Apparent Distress Ears: Normal External Exam Nose: Normal Inspection Throat/Mouth: Normal Inspection Head Exam: Other (Edema and some erythema to the right forehead) Neck: Normal Inspection, Supple, Tender Midline (mild) Respiratory/Chest: No Respiratory Distress, Lungs Clear, Normal Breath Sounds Cardiovascular: Regular Rate, Rhythm, No Edema, No Murmur GI/Abdominal: Soft, Non-Tender, No Organomegaly, No Mass Neuro Exam (Abbreviated): Alert, Oriented, No Motor/Sensory Deficits Extremities: Other (Mild tenderness to the left wrist) #1 Interpretation EKG Date: 12/24/20 Time: 08:42 Rhythm: NSR Rate (Beats/Min): 69 Mathews: Normal P-Wave: Present QRS: Normal ST-T: Elevated (Normal early repol) QT: Normal Course - Vital Signs Last Recorded V/S: Last Vital Signs Temp 97.3 F 12/24/20 08:27 Pulse 80 12/24/20 10:00 Resp 16 12/24/20 09:48 BP 129/78 12/24/20 10:00 Pulse Ox 100 12/24/20 10:00 - Orders/Labs/Meds Orders: Active Orders 24 hr Category Date Time Status Cardiac Monitoring [RC] . DIRECTED Care 12/24/20 08:41 Active EKG Documentation Completion [RC] STAT Care 12/24/20 08:42 Active Peripheral IV Care [RC] . DIRECTED Care 12/24/20 08:41 Active Sodium Chloride 0.9% [Normal Saline] 1,000 ml Med 12/24/20 08:45 Active IV .BOLUS Sodium Chloride 0.9% [Saline Flush] Med 12/24/20 08:41 Active 10 ml FLUSH ASDIRECTED PRN Peripheral IV Insertion Adult [OM.PC] Stat Oth 12/24/20 08:41 Ordered Medication Orders Sodium Chloride (Normal Saline) 1,000 mls @ 1,000 mls/hr IV .BOLUS KENDRA Last Admin: 12/24/20 08:53 Dose: 1,000 mls/hr Documented by: GARCIABIL Sodium Chloride (Saline Flush) 10 ml FLUSH ASDIRECTED PRN PRN Reason: Keep Vein Open Last Admin: 02/06/21 08:54 Dose: 10 ml Documented by: JOHN Labs: Laboratory Tests 12/24/20 12/24/20 12/24/20 Range/Units 08:49 08:49 08:49 WBC 9.13 H (4.23-9.07) K/mm3 RBC 5.39 (4.63-6.08) M/mm3 Hgb 15.4 (13.7-17.5) gm/dl Hct 45.3 (40.1-51.0) % MCV 84.0 (79.0-92.2) fl MCH 28.6 (25.7-32.2) pg MCHC 34.0 (32.2-35.5) g/dl RDW Std Deviation 41.3 (35.1-43.9) fL Plt Count 404 H D (163-337) K/mm3 MPV 8.5 L (9.4-12.3) fl Neut % (Auto) 65.8 (34.0-67.9) % Lymph % (Auto) 22.3 (21.8-53.1) % [place] % (Auto) 10.1 (5.3-12.2) % Eos % (Auto) 1.4 (0.8-7.0) Baso % (Auto) 0.1 (0.1-1.2) % Neut # (Auto) 6.00 H (1.78-5.38) K/mm3 Lymph # (Auto) 2.04 (1.32-3.57) K/mm3 [place] # (Auto) 0.92 H (0.30-0.82) K/mm3 Eos # (Auto) 0.13 (0.04-0.54) K/mm3 Baso # (Auto) 0.01 (0.01-0.08) K/mm3 D-Dimer, Quantitative < 0.19 L (0.19-0.50) mg/L Sodium 142 (136-145) mEq/L Potassium 4.3 (3.5-5.1) mEq/L Chloride 105 (98-107) mEq/L Carbon Dioxide 26 (21-32) mEq/L Anion Gap 15.3 H (5-15) BUN 17 (7-18) mg/dL Creatinine 1.2 (0.7-1.3) mg/dL Est Cr Clr Drug Dosing 85.10 mL/min Estimated GFR (MDRD) > 60 (>60) mL/min BUN/Creatinine Ratio 14.2 (14-18) Glucose 111 H (74-106) mg/dL Calcium 8.7 (8.5-10.1) mg/dL Magnesium 2.0 (1.8-2.4) mg/dl Total Bilirubin 0.3 (0.2-1.0) mg/dL AST 18 (15-37) U/L ALT 36 (16-63) U/L Alkaline Phosphatase 78 (46-116) U/L Troponin I < 0.017 (0.00-0.056) ng/mL Total Protein 7.7 (6.4-8.2) g/dl Albumin 3.8 (3.4-5.0) g/dl Globulin 3.9 gm/dL Albumin/Globulin Ratio 1.0 (1-2) Meds: Medications Generic Name Dose Route Start Last Admin Trade Name Freq PRN Reason Stop Dose Admin Sodium Chloride 1,000 mls @ 1,000 mls/hr 12/24/20 08:45 12/24/20 08:53 Normal Saline IV 1,000 mls/hr .BOLUS KENDRA Administration Sodium Chloride 10 ml 12/24/20 08:41 12/24/20 08:54 Saline Flush FLUSH 10 ml ASDIRECTED PRN Administration Keep Vein Open - Re-Assessments/Exams Free Text/Narrative Re-Assessment/Exam: 12/24/20 08:49 I ordered an IV NS 1L bolus, EKG, CT of his head and labs. 12/24/20 10:[address] of his head shows some mild sinusitis but nothing else acute. His WBC was elevated slightly at 9.13. His D-dimer is negative. His CMP and troponin are negative. His EKG shows a NSR with normal early repol. I will get him on a holter monitor for a couple days and have follow up with Dr Abad. Departure - Departure Time of Disposition: 10:20 Disposition: Home, Self-Care 01 Condition: Good Clinical Impression: Syncope Qualifiers: Syncope type: unspecified Qualified Code(s): R55 - Syncope and collapse - Discharge Information *PRESCRIPTION DRUG MONITORING PROGRAM REVIEWED*: Not Applicable *COPY OF PRESCRIPTION DRUG MONITORING REPORT IN PATIENT TERESITA: Not Applicable Referrals: German Abad Jr, MD [Primary Care Provider] - 1 Week Forms: ED Department Discharge Additional Instructions: Drink plenty of fluids. Wear the holter monitor for 48 hours. Follow up with your doctor within a week. Please return if you are worse. Sepsis Event Note (ED) - Evaluation Sepsis Screening Result: No Definite Risk - Focused Exam Vital Signs: Vital Signs Temp Pulse Resp BP Pulse Ox 12/24/20 10:00 80 129/78 100 12/24/20 09:48 68 16 130/111 H 100 12/24/20 08:27 97.3 F 65 16 152/94 H 97 - My Orders Last 24 Hours: My Active Orders 12/24/20 08:41 Cardiac Monitoring [RC] . DIRECTED Peripheral IV Care [RC] . DIRECTED Sodium Chloride 0.9% [Saline Flush] 10 ml FLUSH ASDIRECTED PRN Peripheral IV Insertion Adult [OM.PC] Stat 12/24/20 08:42 EKG Documentation Completion [RC] STAT 12/24/20 08:45 Sodium Chloride 0.9% [Normal Saline] 1,000 ml IV .BOLUS - Assessment/Plan Last 24 Hours: My Active Orders 12/24/20 08:41 Cardiac Monitoring [RC] . DIRECTED Peripheral IV Care [RC] . DIRECTED Sodium Chloride 0.9% [Saline Flush] 10 ml FLUSH ASDIRECTED PRN Peripheral IV Insertion Adult [OM.PC] Stat 12/24/20 08:42 EKG Documentation Completion [RC] STAT 12/24/20 08:45 Sodium Chloride 0.9% [Normal Saline] 1,000 ml IV .BOLUS
[2020-12-24] MEDS ORDERED: Sodium Chloride 0.9% 1,000 ML IV SCH (08:45)
--- NOTE | 2020-12-24 09:57 | CT ---
Head CT Technique: Multiple axial sections through the brain were obtained. Comparison: No prior intracranial imaging is available. Findings: Ventricles along with basal cisterns and sulci over the convexities are within normal limits for the patient's age. No abnormal parenchymal densities are seen. No evidence of intracranial hemorrhage. No midline shift or mass-effect is appreciated. Bone window settings were reviewed. Visualized mastoid sinuses are unremarkable. There is slight fluid within the ethmoid sinuses with mild mucosal thickening. Difficult to exclude early sinusitis. No acute calvarial finding is appreciated. Impression: 1. Nothing acute is appreciated on noncontrast head CT exam. 2. Slight mucosal thickening with small air-fluid level within the right ethmoid sinus. Difficult to exclude mild sinusitis. 3. No additional abnormality is seen. Diagnostic code #3
[2020-12-24 10:04] VITALS: BP 129/78; PULSE 80
== END 2020-12-24 10:20 | disposition home or self-care (01) ==
LOC: JD.ED 08:20
DX: R55 Syncope and collapse (principal); M54.2 Cervicalgia; M25.532 Pain in left wrist; R60.0 Localized edema; D72.829 Elevated white blood cell count, unspecified; Z88.1 Allergy status to other antibiotic agents
CPT/HCPCS: 36415; 70450; 80053; 83735; 84484; 85025; 85379; 93005; 93225; 93226; 99284; J7030; 93010

== ENCOUNTER 2024-01-01 01:07 | Emergency (ER) | payer OTHER ==
[2024-01-01 01:31] VITALS: PULSE 59
[2024-01-01] MEDS: Sodium Chloride 0.9% 1,000 ML IV SCH (01:55)
[2024-01-01] MEDS: Ondansetron 4 MG/2 ML SDV IVPUSH ONE (01:55)
[2024-01-01] MEDS: Sodium Chloride 0.9% 10 ML Syringe FLUSH PRN (01:55)
[2024-01-01] MEDS: Ketorolac 30 MG/ML SDV IVPUSH ONE (01:55)
[2024-01-01 02:08] LABS: BASOPHILS PERCENT AUTO 0.3 % (0.0-1.0); EOSINOPHILS ABSOLUTE AUTO 0.1 K/mm3 (0.0-0.4); EOSINOPHILS PERCENT AUTO 1.3 % (0.0-6.0); HEMATOCRIT 42.4 % (42.0-52.0); HEMOGLOBIN 14.9 gm/dl (14.0-18.0); IMMATURE GRAN ABSOLUTE AUTO 0.02 K/mm3 (0.00-0.05); IMMATURE GRAN PERCENT AUTO 0.3 % (0.0-0.4); LYMPHOCYTES ABSOLUTE AUTO 1.9 K/mm3 (1.0-4.8); LYMPHOCYTES PERCENT AUTO 30.3 % (24.0-44.0); MEAN CORPUSCULAR HEMOGLOBIN 30.8 pg (28.0-32.0); MEAN CORPUSCULAR HGB CONC 35.1 g/dl (32.0-36.0); MEAN CORPUSCULAR VOLUME 87.8 fl (83.0-99.0); MEAN PLATELET VOLUME 8.7 fl (9.4-12.4); MONOCYTES ABSOLUTE AUTO 0.8 K/mm3 (0.0-0.8); MONOCYTES PERCENT AUTO 12.6 % (0.0-8.0); NEUTROPHILS ABSOLUTE AUTO 3.4 K/mm3 (1.8-7.7); NEUTROPHILS PERCENT AUTO 55.2 % (41.0-71.0); PLATELET COUNT,PLT 291 K/mm3 (150-400); RED BLOOD CELL COUNT 4.83 M/mm3 (4.52-5.90); WHITE BLOOD CELL COUNT,WBC 6.11 K/mm3 (3.9-11.3)
[2024-01-01] MEDS: Sodium Chloride 0.9% 100 ML IV SCH (02:27)
[2024-01-01] MEDS: Iopamidol 755 Mg/ML 100 ML Bottle IVPUSH ONE (02:27)
[2024-01-01 02:28] LABS: APPEARANCE,URINE CLEAR (Clear); BILIRUBIN,URINE NEGATIVE (Negative); COLOR,URINE YELLOW (Yellow); GLUCOSE,URINE NEGATIVE (Negative); KETONES,URINE NEGATIVE (Negative); LEUKOCYTE ESTERASE,URINE NEGATIVE (Negative); NITRITE,URINE NEGATIVE (Negative); OCCULT BLOOD,URINE NEGATIVE (Negative); PROTEIN,URINE NEGATIVE (Negative); UROBILINOGEN,URINE 0.2 (0.2-1.0)
[2024-01-01 02:34] LABS: ALBUMIN 3.6 g/dl (3.4-5.0); BILIRUBIN TOTAL 0.4 mg/dL (0.2-1.0); BUN/CREATININE RATIO 21.7 (14-18); CALCIUM 8.7 mg/dL (8.5-10.1); CREATININE 1.2 mg/dL (0.7-1.3); EST CRCL DRUG DOSING (CG) 82.65 mL/min; MAGNESIUM 1.7 mg/dL (1.8-2.4); PROTEIN TOTAL,TP 7.3 g/dl (6.4-8.2)
[2024-01-01 02:39] LABS: BACTERIA,URINE NOT SEEN /hpf (FEW); EPITHELIAL CELLS,URINE NOT SEEN /hpf (0-5); MUCUS,URINE RARE /hpf (FEW); RBC,URINE 0-5 /hpf (0-5); WBC,URINE NOT SEEN /hpf (0-5)
[2024-01-01 03:47] VITALS: BP 123/61
== END 2024-01-01 03:46 | disposition home or self-care (01) ==
LOC: JD.ED 01:07
DX: K52.9 Noninfective gastroenteritis and colitis, unspecified (principal); R19.7 Diarrhea, unspecified; Z88.1 Allergy status to other antibiotic agents
CPT/HCPCS: 36415; 74177; 80053; 81001; 83690; 83735; 85025; 96361; 96374; 96375; 99284; J1885; J2405; J3490; J7030; Q9967